=== PATIENT | male | born 1995 | race African-American/Black ===

== ENCOUNTER 2018-12-08 00:06 | Emergency (ER) | payer SELFPAY ==
[~2018-12-08] VITALS: Ht 180.3 cm; Wt 86.0 kg
[2018-12-08 00:11] VITALS: BP 129/74
== END 2018-12-08 00:59 | disposition left against medical advice (07) ==
LOC: ER 00:06
DX: Z53.21 Procedure and treatment not carried out due to patient leaving prior to being seen by health care provider (principal)